=== PATIENT | male | born 1995 | race African-American/Black ===

== ENCOUNTER 2025-06-28 20:04 | Emergency (ER) | payer SELFPAY ==
[~2025-06-28] VITALS: Ht 185.4 cm; Wt 79.8 kg
[2025-06-28 20:29] VITALS: TEMP 37.1; O2SAT 100
[2025-06-28 21:52] LABS: BASOPHILS % 0.4 % (0.0-2.0); EOSINOPHILS % 2.7 % (0.0-5.0); HEMATOCRIT. 41.5 % (42.0-52.0); HEMOGLOBIN. 13.5 g/dL (14.0-18.0); LYMPHOCYTES % 31.4 % (20.0-50.0); MEAN PLATELET VOLUME 8.8 fl (7.4-10.4); MONOCYTES % 5.1 % (2.0-8.0); NEUTROPHILS % 60.4 % (40.0-76.0); PLATELET 125 x1000/uL (130-400); RED BLOOD CELL COUNT 4.51 mill/uL (4.7-6.1); RED CELL DISTRIBUTION WIDTH 13.2 % (11.6-14.6)
[2025-06-28 22:05] LABS: CREATININE 0.9 mg/dL (0.6-1.3); TROPONIN I HIGH SENSITIVITY < 4 ng/L (3.0-53); UREA NITROGEN BLOOD 7 mg/dL (9-23)
[2025-06-28] MEDS ORDERED: ALBU18HF2 IH (22:43)
[2025-06-28] MEDS ORDERED: PRED5TAB48 MT (22:43)
[2025-06-28 22:54] VITALS: BP 123/81; PULSE 67; RESP 12; O2SAT 100
== END 2025-06-28 22:55 | disposition home or self-care (01) ==
LOC: ER 20:04
DX: R06.02 Shortness of breath (principal); F17.200 Nicotine dependence, unspecified, uncomplicated; F41.9 Anxiety disorder, unspecified; I10 Essential (primary) hypertension
CPT/HCPCS: 36415; 71045; 80048; 84484; 85025; 93005; 99285